=== PATIENT | female | born 1985 | race American Indian/Alaskan Native ===

== ENCOUNTER 2021-03-10 10:49 | Emergency (ER) | payer SELFPAY ==
[2021-03-10] MEDS ORDERED: dexAMETHasone 20 MG/5 ML VIAL IV ONE (11:22)
[2021-03-10] MEDS ORDERED: KETOROLAC 30 MG/1 ML INJ IV ONE (11:22)
[2021-03-10] MEDS ORDERED: SODIUM CHLORIDE 0.9% 1000 ML 1,000 ML IV ONE (11:22)
--- NOTE | 2021-03-10 11:27 | Emergency Department Report ---
ED General Adult HPI - General Chief complaint: Chest Pain Stated complaint: RAPID HEART BEAT/CHEST PAIN Time Seen by Provider: 03/10/21 11:07 Source: patient Mode of arrival: Ambulatory Limitations: No Limitations - History of Present Illness Initial comments: 35-year-old -[place] female patient presents with complaints of chest pain and headache starting yesterday. Patient has a history of Crohn's disease and is not currently on any medications. She denies any shortness of breath, cough, numbness/tingling/weakness in her limbs, vision changes, dizziness, confusion, memory loss, or difficulty with speech/ambulation. She describes her chest pain as sharpness and rates it as a 8/10 in severity. Headache is also rated as a 8/10 in severity. No history of migraines per patient or head injuries. She also denies any recent long travel, hemoptysis, leg pain/swelling, history of DVT/PE/cancer. Patient does admit to being on control. She states she tried Tylenol for headache without any improvement. Patient is vaccinated against COVID-19 and denies any loss of taste or smell - Related Data Previous Rx's Medication Instructions Recorded Last Taken Type Ibuprofen [Motrin 800 MG tab] 800 mg PO Q8HR PRN #20 tablet 03/10/21 Unknown Rx Allergies Allergy/AdvReac Type Severity Reaction Status Date / Time NSAIDS (Non-Steroidal AdvReac Vomiting Verified 03/10/21 10:58 Anti-Inflamma ED Review of Systems ROS: Stated complaint: RAPID HEART BEAT/CHEST PAIN Other details as noted in HPI Constitutional: denies: chills, diaphoresis, fever, malaise, weakness Respiratory: denies: cough, shortness of breath, SOB with exertion Cardiovascular: as per HPI. denies: edema, syncope Gastrointestinal: as per HPI. denies: nausea, vomiting Skin: denies: rash, lesions, change in color Neurological: headache. denies: numbness, paresthesias, confusion, abnormal gait, vertigo Hematological/Lymphatic: denies: swollen glands ED Past Medical Hx - Past Medical History Previous Medical History?: Yes Additional medical history: Chron's - Medications Home Medications: Home Medications Medication Instructions Recorded Confirmed Last Taken Type Ibuprofen [Motrin 800 MG tab] 800 mg PO Q8HR PRN #20 tablet 03/10/21 Unknown Rx ED Physical Exam - General Limitations: No Limitations General appearance: alert, in no apparent distress - Head Head exam: Present: atraumatic, normocephalic - Eye Eye exam: Present: normal appearance, PERRL, EOMI. Absent: scleral icterus - Neck Neck exam: Present: normal inspection - Respiratory Respiratory exam: Present: normal lung sounds bilaterally. Absent: respiratory distress, chest wall tenderness - Cardiovascular Cardiovascular Exam: Present: regular rate, normal rhythm. Absent: systolic murmur, diastolic murmur, rubs, gallop - GI/Abdominal GI/Abdominal exam: Present: soft. Absent: tenderness - Extremities Exam Extremities exam: Present: full ROM. Absent: calf tenderness (No swelling or pain noted to legs bilaterally) - Back Exam Back exam: Present: full ROM - Neurological Exam Neurological exam: Present: alert, oriented X3, CN II-XII intact, normal gait. Absent: motor sensory deficit - Expanded Neurological Exam Expanded Speech: Present: fluid speech Cerebellar function: Finger to Nose: Normal, Heel to Smiley: Normal, Romberg: Normal Sensory exam: Upper Extremity Light Touch: Normal, Lower Extremity Light Touch: Normal Motor strength exam: RUE: 4, LUE: 4, RLE: 4, LLE: 4 Best Eye Response (Chapo): (4) open spontaneously Best Motor Response (Chapo): (6) obeys commands Best Verbal Response (Chapo): (5) oriented Ransom Total: 15 - Psychiatric Psychiatric exam: Present: normal affect, normal mood - Skin Skin exam: Present: warm, dry, intact, normal color. Absent: rash ED Course Vital Signs 03/10/21 10:56 Temperature 98.8 F Pulse Rate 98 H Respiratory 16 Rate Blood Pressure 130/78 O2 Sat by Pulse 98 Oximetry ED Medical Decision Making - Lab Data Result diagrams: 03/10/21 12:55 03/10/21 12:01 Lab Results 03/10/21 03/10/21 03/10/21 Range/Units 12:01 12:01 12:55 WBC 9.0 (4.5-11.0) K/mm3 RBC 4.88 (3.65-5.03) M/mm3 Hgb 12.5 (10.1-14.3) gm/dl Hct 39.3 (30.3-42.9) % MCV 81 (79-97) fl MCH 26 L (28-32) pg MCHC 32 (30-34) % RDW 12.7 L (13.2-15.2) % Plt Count 232 (140-440) K/mm3 Lymph % (Auto) 11.3 L (13.4-35.0) % [place] % (Auto) 4.9 (0.0-7.3) % Eos % (Auto) 0.5 (0.0-4.3) % Baso % (Auto) 0.3 (0.0-1.8) % Lymph # (Auto) 1.0 L (1.2-5.4) K/mm3 [place] # (Auto) 0.4 (0.0-0.8) K/mm3 Eos # (Auto) 0.0 (0.0-0.4) K/mm3 Baso # (Auto) 0.0 (0.0-0.1) K/mm3 Seg Neutrophils % 83.0 H (40.0-70.0) % Seg Neutrophils # 7.5 (1.8-7.7) K/mm3 D-Dimer (0-234) ng/mlDDU Sodium 137 (137-145) mmol/L Potassium 4.0 (3.6-5.0) mmol/L Chloride 102.6 (98-107) mmol/L Carbon Dioxide 14 L (22-30) mmol/L Anion Gap 24 mmol/L BUN 11 (7-17) mg/dL Creatinine 0.6 (0.6-1.2) mg/dL Estimated GFR > 60 ml/min BUN/Creatinine Ratio 18 % Glucose 76 (65-100) mg/dL Calcium 9.1 (8.4-10.2) mg/dL Total Bilirubin 0.70 (0.1-1.2) mg/dL AST 20 (5-40) units/L ALT 14 (7-56) units/L Alkaline Phosphatase 62 (35-129) units/L Troponin T < 0.010 (0.00-0.029) ng/mL Total Protein 8.1 (6.3-8.2) g/dL Albumin 3.7 L (3.9-5) g/dL Albumin/Globulin Ratio 0.8 % HCG, Qual Negative (Negative) 03/10/21 Range/Units 12:55 WBC (4.5-11.0) K/mm3 RBC (3.65-5.03) M/mm3 Hgb (10.1-14.3) gm/dl Hct (30.3-42.9) % MCV (79-97) fl MCH (28-32) pg MCHC (30-34) % RDW (13.2-15.2) % Plt Count (140-440) K/mm3 Lymph % (Auto) (13.4-35.0) % [place] % (Auto) (0.0-7.3) % Eos % (Auto) (0.0-4.3) % Baso % (Auto) (0.0-1.8) % Lymph # (Auto) (1.2-5.4) K/mm3 [place] # (Auto) (0.0-0.8) K/mm3 Eos # (Auto) (0.0-0.4) K/mm3 Baso # (Auto) (0.0-0.1) K/mm3 Seg Neutrophils % (40.0-70.0) % Seg Neutrophils # (1.8-7.7) K/mm3 D-Dimer 135.00 (0-234) ng/mlDDU Sodium (137-145) mmol/L Potassium (3.6-5.0) mmol/L Chloride (98-107) mmol/L Carbon Dioxide (22-30) mmol/L Anion Gap mmol/L BUN (7-17) mg/dL Creatinine (0.6-1.2) mg/dL Estimated GFR ml/min BUN/Creatinine Ratio % Glucose (65-100) mg/dL Calcium (8.4-10.2) mg/dL Total Bilirubin (0.1-1.2) mg/dL AST (5-40) units/L ALT (7-56) units/L Alkaline Phosphatase (35-129) units/L Troponin T (0.00-0.029) ng/mL Total Protein (6.3-8.2) g/dL Albumin (3.9-5) g/dL Albumin/Globulin Ratio % HCG, Qual (Negative) - Radiology Data Radiology results: report reviewed CHEST 2 VIEWS INDICATION: chest pain. COMPARISON: none FINDINGS: Support devices: None. Heart: Within normal limits. Lungs/pleura: No acute air space or interstitial disease. No pneumothorax. Additional findings: None. IMPRESSION: No acute findings. Signer Name: Dwain Coleman Jr, MD Signed: 03/10/2021 1:28 PM Workstation Name: [id number] - Medical Decision Making 35-year-old -[place] female patient presents with complaints of chest pain and headache starting yesterday. Patient has a history of Crohn's disease and is not currently on any medications. She denies any shortness of breath, cough, numbness/tingling/weakness in her limbs, vision changes, dizziness, confusion, memory loss, or difficulty with speech/ambulation. She describes her chest pain as sharpness and rates it as a 8/10 in severity. Headache is also rated as a 8/10 in severity. No history of migraines per patient or head injuries. She also denies any recent long travel, hemoptysis, leg pain/swe lling, history of DVT/PE/cancer. Patient does admit to being on control. She states she tried Tylenol for headache without any improvement. Patient is vaccinated against COVID-19 and denies any loss of taste or smell Labs show dehydration with anion gap of 24, otherwise no other significant abnormalities are noted. Patient given normal saline 1 L. Heart score = 0. PERC score = 1. Dimer is negative. Patient given Toradol and Decadron. She states her headache and chest pain have resolved. Recommend patient follows up with primary care in 3 to 5 days. She is otherwise well-appearing, her vitals are normal, she is stable for discharge home. Advised on increasing water intake. Discussed in detail signs and symptoms that should prompt immediate return to the ED with patient verbalized understanding peer Critical care attestation.: If time is entered above; I have spent that time in minutes in the direct care of this critically ill patient, excluding procedure time. ED Disposition Clinical Impression: Other chest pain, Acute headache, Dehydration Disposition: HOME / SELF CARE / HOMELESS Is pt being admited?: No Condition: Stable Instructions: Nonspecific Chest Pain, Adult, [id number], Tension Headache, Adult, [id number], Dehydration, Adult, [id number] Prescriptions: Ibuprofen [Motrin 800 MG tab] 800 mg PO Q8HR PRN #20 tablet PRN Reason: pain Referrals: [facility] [Provider Group] - 3-5 Days Forms: Work/School Release Form(ED) Heart Score - HEART Score History: Slightly suspicious EKG: Normal Age: < 45 Risk factors: No known risk factors Troponin: < normal limit HEART Score: 0 - EKG Read Time Time EKG Completed: 11:00 EKG Read Time: 11:05 - Critical Actions Critical Actions: 0-3 pts:0.9-1.7%risk of adverse cardiac event.Candidate for discharge
[2021-03-10 13:26] LABS: Basophils % (Auto) 0.3 % (0.0-1.8); Eosinophils % (Auto) 0.5 % (0.0-4.3); Hematocrit 39.3 % (30.3-42.9); Hemoglobin 12.5 gm/dl (10.1-14.3); Lymphocytes % (Auto) 11.3 % (13.4-35.0); Mean Corpuscular HGB Conc 32 % (30-34); Mean Corpuscular Volume 81 fl (79-97); Monocytes # (Auto) 0.4 K/mm3 (0.0-0.8); Monocytes % (Auto) 4.9 % (0.0-7.3); Platelet Count 232 K/mm3 (140-440); Red Blood Count 4.88 M/mm3 (3.65-5.03); Red Cell Distribution Width 12.7 % (13.2-15.2)
--- NOTE | 2021-03-10 13:32 | XRay Report ---
CHEST 2 VIEWS INDICATION: chest pain. COMPARISON: none FINDINGS: Support devices: None. Heart: Within normal limits. Lungs/pleura: No acute air space or interstitial disease. No pneumothorax. Additional findings: None. IMPRESSION: No acute findings. Signer Name: Dwain Coleman Jr, MD Signed: 03/10/2021 1:28 PM Workstation Name: [id number]
[2021-03-10 14:39] LABS: Alanine Aminotransferase 14 units/L (7-56); Albumin 3.7 g/dL (3.9-5); BUN/Creatinine Ratio 18; Blood Urea Nitrogen 11 mg/dL (7-17); Calcium 9.1 mg/dL (8.4-10.2); Hemolysis Index 53
[2021-03-10 16:01] VITALS: BP 131/82
--- NOTE | 2021-03-11 10:25 | Electrocardiograph Report ---
[facility] Test Date: 2021-03-10 Test Time: 15:54:34 Pat Name: GERRI LESLIE Department: Room: Gender: F [employer] Supervisor: MANUEL : 1985 Requested By: JAMIE PEDROZA Order Number: [id number] Reading MD: Jason Guerrero Measurements Intervals [place] Rate: 94 P: 47 DC: 164 QRS: 50 QRSD: 78 T: -1 QT: 379 QTc: 475 Interpretive Statements Sinus rhythm No previous ECG available for comparison Electronically Signed On 03-11-2021 10:25:05 EST by Jason Guerrero
== END 2021-03-10 16:02 | disposition home or self-care (01) ==
LOC: ED 10:49
DX: R07.89 Other chest pain (principal); R51.9 Headache, unspecified; E86.0 Dehydration; Z91.09 Other allergy status, other than to drugs and biological substances; Z79.899 Other long term (current) drug therapy
CPT/HCPCS: 36415; 71046; 80053; 84484; 84703; 85025; 85379; 93005; 93010; 96361; 96374; 96375; 99284; J1100; J1885; J7030; Q0162